=== PATIENT | male | born 1940 | race Caucasian/White ===

== ENCOUNTER 2017-01-30 19:26 | Inpatient (IN) | payer MEDICARE ==
[~2017-01-30] VITALS: Ht 177.8 cm; Wt 91.4 kg
[2017-01-30 21:55] LABS: RED BLOOD COUNT 3.73 M/UL (4.20-5.50)
[2017-01-30 22:11] LABS: BUN/CREATININE RATIO 23 (0-10)
[2017-01-31] MEDS ORDERED: NORVASC 5 MG TAB5 MG PO (03:27)
[2017-01-31] MEDS ORDERED: LIPITOR TAB 2020 MG PO (03:27)
[2017-01-31] MEDS ORDERED: CITALOPRAM HBR20 MG PO (03:28)
[2017-01-31] MEDS ORDERED: CARDURA 2MG TAB2 MG PO (03:30)
[2017-01-31] MEDS ORDERED: ELIQUIS 5 MG TAB5 MG PO (03:30)
[2017-01-31] MEDS ORDERED: FERROUS SULFAT325 M2 PO (03:30)
[2017-01-31] MEDS ORDERED: NEURONTIN 400400 MG PO (03:31)
[2017-01-31] MEDS ORDERED: NOVOLOG100 UNIT/1 SQ (03:32)
[2017-01-31] MEDS ORDERED: KLOR-CON M2020 MEQ PO (03:32)
[2017-01-31] MEDS ORDERED: LEVEMIR100 UNIT/1 SQ (03:33)
[2017-01-31] MEDS ORDERED: LOPERAMIDE2 M1 PO (03:34)
[2017-01-31] MEDS ORDERED: LOSARTAN POTASS25 MG PO (03:34)
[2017-01-31] MEDS ORDERED: TOPROL XL50 MG PO (03:34)
[2017-01-31] MEDS ORDERED: ULTRAM50 MG PO (03:35)
[2017-01-31] MEDS ORDERED: FLOMAX 0.4 MG0.4 MG PO (03:35)
[2017-01-31] MEDS ORDERED: TYLENOL 500 MG500 MG PO (03:36)
[2017-01-31] MEDS ORDERED: VITAMIN D2000 UNI1 PO ×2 (03:37)
[2017-01-31] MEDS ORDERED: ATIVAN 1MG TABLE1 MG PO (03:38)
[2017-02-01 05:13] LABS: HEMOGLOBIN 10.8 gm/dl (14.0-17.5); RED BLOOD COUNT 3.66 M/UL (4.20-5.50); WHITE BLOOD COUNT 9.1 K/UL (4.5-11.0)
[2017-02-01 05:29] LABS: BUN/CREATININE RATIO 22 (0-10)
[2017-02-03 06:11] LABS: RED BLOOD COUNT 3.71 M/UL (4.20-5.50); WHITE BLOOD COUNT 10.3 K/UL (4.5-11.0)
[2017-02-03 06:37] LABS: BUN/CREATININE RATIO 25 (0-10)
[2017-02-03] MEDS ORDERED: JUVEN PACKET1 EACH PO (20:26)
[2017-02-03] MEDS ORDERED: FORTAZ PO (20:27)
== END 2017-02-03 21:40 | disposition home or self-care (01) | DRG 690 ==
LOC: ER1 19:26 → MED SURG 4 23:00 → ZEROF 23:00 → MED SURG 4 01-31 00:03
PROVIDERS: Emergency Medicine; Internal Medicine; ADMIT Internal Medicine
PROC: 05HF33Z Insertion of Infusion Device into Left Cephalic Vein, Percutaneous Approach (ICD-10-PCS; principal; 2017-01-31)
DX: N39.0 Urinary tract infection, site not specified (principal); I69.351 Hemiplegia and hemiparesis following cerebral infarction affecting right dominant side; B96.89 Other specified bacterial agents as the cause of diseases classified elsewhere; Z79.01 Long term (current) use of anticoagulants; E11.8 Type 2 diabetes mellitus with unspecified complications; D64.9 Anemia, unspecified; R05 Cough; K62.89 Other specified diseases of anus and rectum; K52.9 Noninfective gastroenteritis and colitis, unspecified; R31.9 Hematuria, unspecified; I25.10 Atherosclerotic heart disease of native coronary artery without angina pectoris; Z95.1 Presence of aortocoronary bypass graft; Z85.46 Personal history of malignant neoplasm of prostate; I10 Essential (primary) hypertension; E78.5 Hyperlipidemia, unspecified; Z85.828 Personal history of other malignant neoplasm of skin; B96.1 Klebsiella pneumoniae [K. pneumoniae] as the cause of diseases classified elsewhere; B96.5 Pseudomonas (aeruginosa) (mallei) (pseudomallei) as the cause of diseases classified elsewhere; I48.0 Paroxysmal atrial fibrillation
CPT/HCPCS: 36415; 74230; 80048; 80053; 81001; 82962; 83735; 85025; 85027; 86140; 87040; 87077; 87086; 87186; 92526; 92610; 92611-GN; 93005; 96374; 96375; 97110; 97530; 99285; G0008; J0696; J0713; J7050; J7070; Q2039